=== PATIENT | female | born 1995 | race Caucasian/White ===

== ENCOUNTER → 2020-04-28 10:18 | Outpatient (CLI) | payer OTHER, SELFPAY ==
--- NOTE | 2020-04-28 10:22 | DI.US.S_ITS ---
PROCEDURE: US PELVIC COMPLETE INDICATIONS: IUD PLACEMENT TECHNIQUE: Real-time scanning was performed of the pelvic organs, with image documentation. Additional endovaginal scanning was necessary due to incomplete visualization of the adnexal and endometrial structures by transabdominal scanning. COMPARISON: None. FINDINGS: Transabdominal scanning: Limited scanning through the kidneys shows no hydronephrosis. No pathologic free abdominal or pelvic fluid. Endovaginal scanning: Uterus: Uterus is normal in size at 3.8 x 5.1 x 8.0 cm, anteverted. The endometrium measures 4 mm in combined thickness. A centrally positioned IUD appears in normal position. Ovaries: Right ovary measures 3.1 x 2.0 x 2.5 cm and the left measures 3.5 x 2.8 x 2.8 cm. There is what appears to be a hemorrhagic left ovarian cyst measuring up to 1.6 x 2.5 x 2.8 cm. IMPRESSION: Normal IUD positioning, hemorrhagic left ovarian cyst incidentally noted measuring only approximately 2.8 cm in maximal dimension. Dictated by: Robson Ye M.D. on 04/28/2020 at 16:56 Approved by: Robson Ye M.D. on 04/28/2020 at 16:57
== END ==
PROVIDERS: PCP Nurse Practitioner Family; Referring Provider Obstetrics & Gynecology; Visit Provider Obstetrics & Gynecology
DX: R10.2 Pelvic and perineal pain (principal); N83.202 Unspecified ovarian cyst, left side; Z30.431 Encounter for routine checking of intrauterine contraceptive device
CPT/HCPCS: 76830; 76856